=== PATIENT | female | born 1960 | race Caucasian/White ===

== ENCOUNTER 2018-02-16 15:54 | Emergency (ER) | payer MEDICAID ==
[~2018-02-16] VITALS: Ht 160 cm; Wt 86.8 kg
[2018-02-16 15:57] VITALS: BP 124/83
[2018-02-16] MEDS ORDERED: IBUPROFEN 600 MG TABLET PO ONE (17:15)
== END 2018-02-16 17:50 | disposition home or self-care (01) ==
LOC: EMS 15:56
DX: G56.03 Carpal tunnel syndrome, bilateral upper limbs (principal)
CPT/HCPCS: 99283